=== PATIENT | male | born 1930 | race Caucasian/White ===

== ENCOUNTER 2016-12-19 16:47 | Inpatient (IN) ==
[2016-12-19] MEDS ORDERED: ONDANSETRON 4 MG/2 ML VIAL IV PRN (17:01)
[2016-12-19] MEDS ORDERED: DEXTROSE 50% 25 GM/50 ML SYRINGE IV PRN (17:01)
[2016-12-19] MEDS ORDERED: GLUCAGON 1 MG VIAL IM PRN (17:01)
[2016-12-19] MEDS ORDERED: ACETAMINOPHEN 325 MG TABLET PO PRN ×2 (17:01→18:31)
[2016-12-19] MEDS ORDERED: ENOXAPARIN 30 MG/0.3 ML SYRINGE SUBCUT SCH (17:30)
[2016-12-19] MEDS ORDERED: MAGNESIUM HYDROXIDE SUSP 30 ML UDCUP PO PRN (18:31)
[2016-12-19 18:56] LABS: Basophils # 0.1 10*3/uL (0.0-0.2); Basophils % 0.5 % (0.0-0.8); Eosinophils # 0.1 10*3/uL (0.0-0.87); Eosinophils % 1.4 % (0.00-10.9); Hematocrit 44.5 VOL% (42.0-52.0); Hemoglobin 14.9 GM/DL (14.0-18.0); Immature Granulocytes % 0.5 %; Immature Granulocytes Absolute 0.05 #; Lymphocytes # 1.2 10*3/uL (1.4-4.0); Lymphocytes % 11.9 % (21.2-54.2); Mean Corpuscular HGB Conc 33.5 GM/DL (32-36); Mean Corpuscular Hemoglobin 31 PG (27-34); Mean Corpuscular Volume 93.5 FL (87-102); Mean Platelet Volume 11.4 FL (9.6-12.0); Monocytes # 0.9 10*3/uL (0.11-0.8); Monocytes % 8.8 % (1.7-12.7); Neutrophils # 7.8 10*3/uL (1.4-7.4); Neutrophils % 76.9 % (38.7-73.9); Platelet Count 106 T/CUMM (130-400); Red Blood Count 4.76 MC/CUMM (3.8-5.5); Red Cell Distribution Width 14.8 % (9.3-17.3); White Blood Count 10.1 T/CUMM (4-12)
[2016-12-19 19:27] LABS: Albumin 2.9 G/DL (3.4-5.0); Bilirubin,Total 1.3 MG/DL (0.2-1.0); Calcium 8.8 MG/DL (8.5-10.1); Magnesium 2.2 MG/DL (1.8-2.4); Osmolality,Calculated 280.8 MOS/KG (273-304); Potassium 3.9 MMOL/L (3.5-5.1)
[2016-12-19] MEDS: ALBUTEROL/IPRATROPIUM 3 ML NEB RESP TX SCH (19:48)
[2016-12-19] MEDS ORDERED: VANCOMYCIN INJ 1,000 MG in SODIUM CHLORIDE 0.9% 250 ML IV ONE (21:00)
[2016-12-19] MEDS ORDERED: APIXABAN 2.5 MG TABLET PO SCH (21:00)
[2016-12-19] MEDS: FLECAINIDE 100 MG TABLET PO SCH (22:05)
[2016-12-19] MEDS: DOCUSATE SODIUM 100 MG CAPSULE PO SCH (22:05)
[2016-12-19] MEDS: MIDODRINE 5 MG TABLET PO SCH (22:06)
[2016-12-19] MEDS: APIXABAN 2.5 MG TABLET PO SCH (22:07)
[2016-12-19] MEDS: TAMSULOSIN 0.4 MG CAPSULE PO SCH (22:07)
[2016-12-19] MEDS: GABAPENTIN 100 MG CAPSULE PO SCH (22:08)
[2016-12-19] MEDS: INSULIN LISPRO 100 UNIT/ML SUBCUT SCH (23:29)
[2016-12-20] MEDS: SODIUM CHLORIDE 0.45% 1,000 ML IV SCH ×3 (00:20→22:24)
[2016-12-20] MEDS: cefTRIAXone 1,000 MG in SODIUM CHLORIDE 0.9% 100 ML IV SCH ×2 (00:20→21:00)
[2016-12-20] MEDS: ALBUTEROL/IPRATROPIUM 3 ML NEB RESP TX SCH ×5 (00:54→20:06)
[2016-12-20 02:17] LABS: Apearance,Urine CLEAR (Clear); Bacteria,Urine Few /HPF (Few); Bilirubin,Urine Negative (Negative); Blood, Urine Negative (Negative); Glucose,Urine (UA) Negative (Negative); Ketones,Urine Negative (Negative); Mucus,Urine Occasional /LPF (Occasional); Nitrite,Urine Negative (Negative); Protein,Urine 30 MG/DL; RBC,Urine <1 /HPF (0-4); Squamous Epithelial Cell,Urine Occasional /HPF (0-10); Urine Color Amber (Yellow); Urine Specific Gravity 1.017 (1.001-1.035); WBC,Urine 22 /HPF (0-6)
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
--- NOTE | 2016-12-20 07:42 | EKG Report ---
Stationary ECG Study [facility] Test Date: 12/20/2016 7:24:13 AM Pat Name: JOSE PLUMMER Department: Room: 270 Gender: M Block Tester: MEDINA : 1930 Requested by: Ministerio Thompson Order Number: [id number] Reading MD: JUDIT GOODEN Intervals [place] Rate: 93 P: 999 CO: 0 QRS: 269 QRSD: 213 T: 33 QT: 473 QTc: 523 Interpretive Statements ATRIAL FIBRILLATION at 93 bpm, with OCCASIONAL DEMAND ATRIAL PACING AT 93 BPM RIGHT BUNDLE BRANCH BLOCK Prolonged QTC Electronically Signed On 12-20-16 08:03:36 CDT by JUDIT GOODEN [email or web address]
[2016-12-20] MEDS: INSULIN LISPRO 100 UNIT/ML SUBCUT SCH ×4 (08:39→22:24)
[2016-12-20] MEDS ORDERED: PANTOPRAZOLE 40 MG TABLET PO SCH (09:00)
[2016-12-20] MEDS: ATORVASTATIN 40 MG TABLET PO SCH (09:17)
[2016-12-20] MEDS: ASPIRIN EC 81 MG TABLET PO SCH (09:18)
[2016-12-20] MEDS: DOCUSATE SODIUM 100 MG CAPSULE PO SCH ×2 (09:18→21:00)
[2016-12-20] MEDS: TAMSULOSIN 0.4 MG CAPSULE PO SCH (09:18)
[2016-12-20] MEDS: FLECAINIDE 100 MG TABLET PO SCH ×2 (09:18→20:59)
[2016-12-20] MEDS: MULTIVITAMIN (CENTRUM) TABLET PO SCH (09:18)
[2016-12-20] MEDS: SULFAMETHOX/TRIMETHOPRIM 800-160 MG TABLET PO SCH ×2 (09:18→21:00)
[2016-12-20] MEDS: PANTOPRAZOLE 40 MG TABLET PO SCH (09:19)
[2016-12-20] MEDS: MIDODRINE 5 MG TABLET PO SCH ×3 (09:19→21:00)
[2016-12-20] MEDS: APIXABAN 2.5 MG TABLET PO SCH ×2 (09:19→20:59)
[2016-12-20] MEDS: GABAPENTIN 100 MG CAPSULE PO SCH ×3 (09:19→21:00)
[2016-12-20] MEDS: glipiZIDE 5 MG TABLET PO SCH (09:48)
--- NOTE | 2016-12-20 12:46 | Urology Consultation ---
Assessment and Plan - Time spent with patient Time spent with patient: Greater than 30 minutes (1) UTI (urinary tract infection) Status: Acute Assessment and plan: We will begin intermittent catheterization. The patient and his have done this previously. I think this is probably going be lifelong for him. The nurses will go over with the with training again. Current Visit: No History of Present Illness - Data of Consult Patient: known to practice within the last 3 years Consult date: 12/20/16 Requesting Physician: Jaxon Marie - Consult Narrative Reason for consult: Urinary infection History of present illness: Mr. Rose is a 86 year old male who is well known to me. He has had previous TUR. After the TUR he had difficulty with voiding. He was on intermittent cath for a while but this improved. He is on multiple medicines and does not ambulate which all contribute to urinary retention. Which I think is his problem. He gets up every hour at night. He also has chronic constipation which has a part and is also. I recommend we stop the Flomax. We will begin him on intermittent cath 3 times daily and I think this will probably be lifelong. In the long run he will feel better. He will be getting up at night and he will have these urgent incontinent episodes that he does. I will have the nursing service begin the cathing. They will have a "refresher course" with Mrs. Rose. She has done it in the past. CC: Jaxon Marie MD - Home Medications and Allergies Home Medications: Home Medications Medication Instructions Recorded Confirmed Type Aspirin EC Tab 1 tablet PO DAILY 02/10/15 08/27/16 History Flecainide [Tambocor] 1 tablet PO BID 02/10/15 08/27/16 History glipiZIDE [Glipizide] 1 tablet PO DAILY 02/10/15 08/27/16 History Apixaban [Eliquis] 2.5 mg PO BID 07/06/15 08/27/16 History Atorvastatin Calcium 20 mg PO DAILY 05/06/16 08/27/16 History Gabapentin 100 mg PO TID 05/06/16 08/27/16 History Multivit-Min/FA/Lycopen/Lutein 1 each PO DAILY 05/06/16 08/27/16 History [Centrum Silver Tablet] Midodrine [Proamatine] 2.5 mg PO TID 08/27/16 08/27/16 History Acetaminophen Tab [Tylenol Tab] 650 mg PO Q6H PRN #0 tablet 08/30/16 Rx Albuterol/Ipratropium Neb [Duoneb] 3 ml RESP TX RT Q6H 08/30/16 Rx Docusate Sodium Cap [Colace Cap] 100 mg PO BID capsule 08/30/16 Rx HYDROcodone/ACETAMIN 7.5-325 1 tablet PO Q4H PRN #60 tablet 08/30/16 Rx [[place] 7.5-325] Magnesium Hydroxide Susp [Milk of 30 ml PO Q6H PRN #0 08/30/16 Rx Magnesia] Pantoprazole Tab [Protonix Tab] 40 mg PO DAILY tablet 08/30/16 Rx Levofloxacin Tab [Levaquin Tab] 500 mg PO DAILY #7 tablet 12/18/16 Rx Furosemide 20 mg PO DAILY 12/19/16 12/19/16 History Oxybutynin [Ditropan] 5 mg PO BID 12/19/16 12/19/16 History Tamsulosin [Flomax] 0.4 mg PO BID 12/19/16 12/19/16 History Allergies/Adverse Reactions: Allergies Allergy/AdvReac Type Severity Reaction Status Date / Time No Known Allergies Allergy Verified 12/18/16 15:22 Exam - Constitutional Vitals: Period Temp Pulse Resp BP Sys/Perry Pulse Ox Last 24 Hr 98.3 F-100.3 F 65-103 16-20 90-130/51-76 93-100 Results - Labs CBC & BMP: 12/19/16 18:41 12/19/16 18:41
[2016-12-21] MEDS: ALBUTEROL/IPRATROPIUM 3 ML NEB RESP TX SCH ×4 (00:44→21:04)
[2016-12-21] MEDS: SODIUM CHLORIDE 0.45% 1,000 ML IV SCH ×2 (03:45→12:21)
--- NOTE | 2016-12-21 07:17 | Family Practice Progress Note ---
Family Practice - PN: Subj Interval history: Patient states he had a good night and was seen by Dr. Panchito Marie who recommended intermittent in and out caths for chronic urinary retention. Patient states his appetite has been poor and he relates this to difficulty swallowing. He is not having any strangling episodes and denies any change in phonation. We needed to have a swallowing assessment. I also asked him to get up out of bed and in the chair and I will asked the nurses to assist him in this. Regretfully his ability to ambulate has deteriorated dramatically. Physical therapy will be consulted. His blood cultures were positive for E. coli sensitive to Rocephin. Sensitivities of his MSSA are pending. I do have him on Bactrim DS. Exam (Progress Note) - Constitutional Vitals: Period Temp Pulse Resp BP Sys/Perry Pulse Ox Last 24 Hr 98.3 F-99.2 F 62-98 15-20 96-135/55-72 94-99 Exam: Objectively well-developed gentleman in no acute distress. He is his usual pleasant self and tells me he is not having any trouble breathing. He states he is not having any abdominal pain or discomfort and appears comfortable. Cardiovascular: Heart rates are regular but there is no murmurs or gallops. Respiratory: Lungs are clear to auscultation bilaterally. Abdomen: Abdomen soft and nontender to palpation. Neurologic: He has no abnormality on cranial nerve exam and is noted to have symmetrical strength in upper extremities. He has diffuse weakness in his lower extremities and is developing flexion contractures of both lower extremities. Results - Labs CBC & BMP: 12/19/16 18:41 12/19/16 18:41 Lab Results: I have reviewed the past 24 hour labs Assessment and Plan (1) Altered mental status Status: Acute Assessment and plan: 12/20/2016: Patient appears to have metabolic encephalopathy secondary to his bacteremia. 12/21/2016: Patient's sensorium certainly appears to be clearing. I am going to repeat his liver functions today. Current Visit: Yes (2) Gram-negative bacteremia Status: Acute Assessment and plan: 12/20/2016: ID and sensitivities are pending. We will continue present antibiotics. 12/21/2016: Blood cultures positive for E. coli. I suspect source of this is his urinary tract infection even though he has MSSA on urine culture. He is to begin intermittent in and out catheterizations. Current Visit: Yes (3) UTI (urinary tract infection) Status: Acute Assessment and plan: 12/20/2016: Patient appears to have a coag negative staph. I will add Bactrim DS. Current Visit: Yes
[2016-12-21 08:13] LABS: Basophils % 0.8 % (0.0-0.8); Eosinophils # 0.2 10*3/uL (0.0-0.87); Eosinophils % 3.1 % (0.00-10.9); Hematocrit 38.6 VOL% (42.0-52.0); Immature Granulocytes % 0.8 %; Immature Granulocytes Absolute 0.04 #; Lymphocytes # 1.2 10*3/uL (1.4-4.0); Lymphocytes % 22.5 % (21.2-54.2); Mean Corpuscular HGB Conc 33.4 GM/DL (32-36); Mean Corpuscular Hemoglobin 31 PG (27-34); Mean Platelet Volume 11.8 FL (9.6-12.0); Monocytes # 0.8 10*3/uL (0.11-0.8); Neutrophils # 2.9 10*3/uL (1.4-7.4); Neutrophils % 56.8 % (38.7-73.9); Red Blood Count 4.15 MC/CUMM (3.8-5.5); Red Cell Distribution Width 15.1 % (9.3-17.3)
[2016-12-21 08:27] LABS: Hemoglobin 12.9 GM/DL (14.0-18.0); White Blood Count 5.1 T/CUMM (4-12)
[2016-12-21 08:28] LABS: Platelet Count 99 T/CUMM (130-400)
[2016-12-21 08:40] LABS: Albumin 2.5 G/DL (3.4-5.0); Bilirubin,Direct 0.4 MG/DL (0.0-0.20); Bilirubin,Indirect 0.3 MG/DL (0.0-1.0); Bilirubin,Total 0.7 MG/DL (0.2-1.0); Total Protein 5.2 G/DL (6.4-8.3)
[2016-12-21 08:47] LABS: Eosinophils 1 % (0-10); Hypochromasia Slight; Lymphocytes 21 % (20-55); Segmented Neutrophils 61 % (50-85); Total Cells Counted 100
[2016-12-21 08:48] LABS: Platelet Estimate Decreased
[2016-12-21] MEDS: ATORVASTATIN 40 MG TABLET PO SCH (08:48)
[2016-12-21] MEDS: MIDODRINE 5 MG TABLET PO SCH ×3 (08:51→20:39)
[2016-12-21] MEDS: PANTOPRAZOLE 40 MG TABLET PO SCH (08:51)
[2016-12-21] MEDS: SULFAMETHOX/TRIMETHOPRIM 800-160 MG TABLET PO SCH ×2 (08:51→20:39)
[2016-12-21] MEDS: DOCUSATE SODIUM 100 MG CAPSULE PO SCH ×2 (08:51→20:39)
[2016-12-21] MEDS: FLECAINIDE 100 MG TABLET PO SCH ×2 (08:52→20:39)
[2016-12-21] MEDS: MULTIVITAMIN (CENTRUM) TABLET PO SCH (08:52)
[2016-12-21] MEDS: GABAPENTIN 100 MG CAPSULE PO SCH ×3 (08:52→20:39)
[2016-12-21] MEDS: ASPIRIN EC 81 MG TABLET PO SCH (08:52)
[2016-12-21] MEDS: glipiZIDE 5 MG TABLET PO SCH (08:52)
[2016-12-21] MEDS: APIXABAN 2.5 MG TABLET PO SCH ×2 (08:52→20:39)
[2016-12-21] MEDS: INSULIN LISPRO 100 UNIT/ML SUBCUT SCH ×4 (10:18→21:35)
--- NOTE | 2016-12-21 11:30 | Urology Progress Note ---
Assessment and Plan (1) UTI (urinary tract infection) Status: Acute Assessment and plan: We will begin intermittent catheterization. The patient and his have done this previously. I think this is probably going be lifelong for him. The nurses will go over with the with training again. Current Visit: No Urology - PN: Subj Interval history: We stopped his Flomax and begin intermittent catheterization. His residuals have been low. He does have precipitous incontinence and that is his first sensation. He has become basically wheelchair-bound since he fractured his hip earlier in the spring. Some of this is functional which I cannot change. I do recommend that we cathing as needed. We will offer him Ditropan to see if this will help with his incontinence. And we will continue to not give him the Flomax. Exam - Constitutional Vitals: Period Temp Pulse Resp BP Sys/Perry Pulse Ox Last 24 Hr 98.3 F-99.2 F 62-98 15-20 96-135/55-72 94-99 Results - Labs CBC & BMP: 12/21/16 07:49 12/19/16 18:41
[2016-12-21] MEDS: OXYBUTYNIN XL 10 MG TABLET PO SCH (12:18)
[2016-12-21] MEDS: cefTRIAXone 1,000 MG in SODIUM CHLORIDE 0.9% 100 ML IV SCH (20:40)
[2016-12-22] MEDS: ALBUTEROL/IPRATROPIUM 3 ML NEB RESP TX SCH ×4 (01:16→19:23)
[2016-12-22] MEDS: SODIUM CHLORIDE 0.45% 1,000 ML IV SCH ×2 (01:22→14:25)
--- NOTE | 2016-12-22 05:46 | Family Practice Progress Note ---
Family Practice - PN: Subj Interval history: Patient apparently slept very poorly last night according to his . Patient states she is feeling good this morning is ready for his breakfast. Is noted to have low volume residuals on intermittent in and out caths. Dr. Panchito Marie is add some Ditropan. Is also noted to have MSSA on his urine culture and it is resistant to multiple drugs. It is sensitive to Macrobid I will start him on that today. His E. coli in his bloodstream is sensitive to Rocephin and this will be continued. He will be in the hospital through the weekend with his gram-negative bacteremia. Exam (Progress Note) - Constitutional Vitals: Period Temp Pulse Resp BP Sys/Perry Pulse Ox Last 24 Hr 98.6 F-99.4 F 66-104 18-20 103-125/53-71 95-99 Exam: Objectively well-developed gentleman in no acute distress. He states he is feeling much better Cardiovascular: Heart rates are regular but there is no murmurs or gallops. Respiratory: Lungs are clear to auscultation bilaterally. Abdomen: Abdomen soft and nontender to palpation. Results - Labs CBC & BMP: 12/21/16 07:49 12/19/16 18:41 Lab Results: I have reviewed the past 24 hour labs Assessment and Plan (1) Altered mental status Status: Resolved Assessment and plan: 12/20/2016: Patient appears to have metabolic encephalopathy secondary to his bacteremia. 12/21/2016: Patient's sensorium certainly appears to be clearing. I am going to repeat his liver functions today. 12/22/2016: Patient has returned to his baseline. Current Visit: Yes (2) Gram-negative bacteremia Status: Acute Assessment and plan: 12/20/2016: ID and sensitivities are pending. We will continue present antibiotics. 12/21/2016: Blood cultures positive for E. coli. I suspect source of this is his urinary tract infection even though he has MSSA on urine culture. He is to begin intermittent in and out catheterizations. 12/22/2016: E. coli is sensitive to Rocephin Current Visit: Yes (3) UTI (urinary tract infection) Status: Acute Assessment and plan: 12/20/2016: Patient appears to have a coag negative staph. I will add Bactrim DS. 12/22/2016: Patient's MSSA is resistant to all oral antibiotics except Zyvox and Macrodantin. I am going to switch him to Macrodantin. Current Visit: Yes
[2016-12-22] MEDS: INSULIN LISPRO 100 UNIT/ML SUBCUT SCH ×4 (08:26→21:29)
[2016-12-22] MEDS: MIDODRINE 5 MG TABLET PO SCH ×3 (09:08→21:24)
[2016-12-22] MEDS: MULTIVITAMIN (CENTRUM) TABLET PO SCH (09:09)
[2016-12-22] MEDS: DOCUSATE SODIUM 100 MG CAPSULE PO SCH ×2 (09:09→21:24)
[2016-12-22] MEDS: OXYBUTYNIN XL 10 MG TABLET PO SCH (09:09)
[2016-12-22] MEDS: FLECAINIDE 100 MG TABLET PO SCH ×2 (09:09→21:24)
[2016-12-22] MEDS: NITROFURANTOIN MACRO/MONO 100 MG CAPSULE PO SCH ×2 (09:09→21:24)
[2016-12-22] MEDS: APIXABAN 2.5 MG TABLET PO SCH ×2 (09:10→21:24)
[2016-12-22] MEDS: ATORVASTATIN 40 MG TABLET PO SCH (09:10)
[2016-12-22] MEDS: PANTOPRAZOLE 40 MG TABLET PO SCH (09:10)
[2016-12-22] MEDS: GABAPENTIN 100 MG CAPSULE PO SCH ×3 (09:10→21:24)
[2016-12-22] MEDS: glipiZIDE 5 MG TABLET PO SCH (09:10)
[2016-12-22] MEDS: ASPIRIN EC 81 MG TABLET PO SCH (09:10)
--- NOTE | 2016-12-22 09:18 | Urology Progress Note ---
Assessment and Plan (1) UTI (urinary tract infection) Status: Acute Assessment and plan: We will begin intermittent catheterization. The patient and his have done this previously. I think this is probably going be lifelong for him. The nurses will go over with the with training again. Current Visit: No Urology - PN: Subj Interval history: We started some Ditropan yesterday and were cathing him as needed. He does not see much of a change at this will take some time. Exam - Constitutional Vitals: Period Temp Pulse Resp BP Sys/Perry Pulse Ox Last 24 Hr 98.6 F-99.4 F 66-104 18-20 103-131/53-73 95-99 Results - Labs CBC & BMP: 12/21/16 07:49 12/19/16 18:41
[2016-12-22] MEDS: cefTRIAXone 1,000 MG in SODIUM CHLORIDE 0.9% 100 ML IV SCH (21:24)
[2016-12-23] MEDS: ALBUTEROL/IPRATROPIUM 3 ML NEB RESP TX SCH ×4 (00:07→19:18)
[2016-12-23] MEDS: SODIUM CHLORIDE 0.45% 1,000 ML IV SCH ×2 (04:11→13:07)
--- NOTE | 2016-12-23 08:09 | Family Practice Progress Note ---
Family Practice - PN: Subj Interval history: PCP: Dr. Marie. Patient admitted for UTI, gram-negative bacteremia altered mental status, history of diabetes type 2, hypertension, A. fib status post cardioversion, DVT Patient seen and examined on the telemetry bed, accompanied by his at the bedside. Patient mentions he is overall feeling better than previous days, Had excess urine yesterday as per patient. No fever, nausea, vomiting, chest pain, headaches or dizziness. No overnight events reported by the nurse. Exam (Progress Note) - Constitutional Vitals: Period Temp Pulse Resp BP Sys/Perry Pulse Ox Last 24 Hr 98.7 F-99.6 F 64-88 18-20 101-129/58-73 94-99 Exam: GENERAL APPEARANCE: alert and oriented, elderly male patient, lying in the bed, having a DuoNeb treatment presently. HEENT: Decreased hearing. EYES: extraocular movement intact (EOMI), conjunctiva clear, normal. NECK/THYROID: neck supple, full range of motion, no cervical lymphadenopathy, no thyromegaly. HEART: regular rate and rhythm, no murmurs, rubs, gallops. LUNGS: clear to auscultation bilaterally, no wheezes, rales, rhonchi. ABDOMEN: soft, nontender, nondistended, no organomegaly , bowel sounds present. EXTREMITIES: no edema. NEUROLOGIC: alert and oriented, cranial nerves 2-12 grossly intact, Results - Labs CBC & BMP: 12/21/16 07:49 12/19/16 18:41 Lab Results: I have reviewed the past 24 hour labs - Impressions Blood culture, from 12/19/2016 no growth for 3 days, urine culture from 12/20/2016 no growth for 2 days Assessment and Plan (1) UTI (urinary tract infection) Status: Acute Assessment and plan: , on antibiotics Rocephin, Macrobid. Continue urologist recommendations 2. Altered mental status, resolved. 3. Diabetes mellitus type 2, stable continue sliding scale and oral meds, Neurontin. 4. Hypertension stable, continue antihypertensives. 5. History of A. fib status post cardioversion, history of DVT on Eliquis. Current Visit: Yes (2) Gram-negative bacteremia Status: Acute Current Visit: Yes (3) Altered mental status Status: Resolved Current Visit: Yes (4) Diabetes type 2, controlled Status: Chronic Current Visit: Yes Qualifiers: Diabetes mellitus complication detail: with polyneuropathy (5) Hypertension Status: Chronic Current Visit: Yes Qualifiers: Hypertension type: essential hypertension Qualified Code(s): I10 - Essential (primary) hypertension (6) Atrial fibrillation Status: Chronic Current Visit: No (7) Hx of deep venous thrombosis Problem details: on Eliquis Status: Chronic Current Visit: No
[2016-12-23] MEDS: INSULIN LISPRO 100 UNIT/ML SUBCUT SCH ×3 (09:17→17:01)
[2016-12-23] MEDS: FLECAINIDE 100 MG TABLET PO SCH ×2 (09:18→21:29)
[2016-12-23] MEDS: MIDODRINE 5 MG TABLET PO SCH ×3 (09:19→21:28)
[2016-12-23] MEDS: OXYBUTYNIN XL 10 MG TABLET PO SCH (09:19)
[2016-12-23] MEDS: DOCUSATE SODIUM 100 MG CAPSULE PO SCH ×2 (09:19→21:27)
[2016-12-23] MEDS: APIXABAN 2.5 MG TABLET PO SCH ×2 (09:19→21:28)
[2016-12-23] MEDS: MULTIVITAMIN (CENTRUM) TABLET PO SCH (09:19)
[2016-12-23] MEDS: GABAPENTIN 100 MG CAPSULE PO SCH ×3 (09:20→21:27)
[2016-12-23] MEDS: NITROFURANTOIN MACRO/MONO 100 MG CAPSULE PO SCH ×2 (09:21→21:28)
[2016-12-23] MEDS: ASPIRIN EC 81 MG TABLET PO SCH (09:21)
[2016-12-23] MEDS: PANTOPRAZOLE 40 MG TABLET PO SCH (09:21)
[2016-12-23] MEDS: ATORVASTATIN 40 MG TABLET PO SCH (09:22)
[2016-12-23] MEDS: glipiZIDE 5 MG TABLET PO SCH (09:22)
--- NOTE | 2016-12-23 12:10 | Urology Progress Note ---
Assessment and Plan (1) UTI (urinary tract infection) Status: Acute Assessment and plan: We will begin intermittent catheterization. The patient and his have done this previously. I think this is probably going be lifelong for him. The nurses will go over with the with training again. Current Visit: No Urology - PN: Subj Interval history: Mr. Rose is some better. A big part of his problem is he is laying in his bed and is not mobile. Has not had a bowel movement for 5 days and they need to work on that. I will order PT to improve that. We will give the Ditropan more time. Exam - Constitutional Vitals: Period Temp Pulse Resp BP Sys/Perry Pulse Ox Last 24 Hr 97.9 F-99.6 F 64-91 18-20 101-129/58-73 94-99 Results - Labs CBC & BMP: 12/21/16 07:49 12/19/16 18:41
[2016-12-23] MEDS: cefTRIAXone 1,000 MG in SODIUM CHLORIDE 0.9% 100 ML IV SCH (21:32)
[2016-12-24] MEDS: ALBUTEROL/IPRATROPIUM 3 ML NEB RESP TX SCH ×4 (00:34→19:12)
[2016-12-24] MEDS: SODIUM CHLORIDE 0.45% 1,000 ML IV SCH ×2 (00:56→16:51)
[2016-12-24] MEDS: INSULIN LISPRO 100 UNIT/ML SUBCUT SCH ×4 (01:03→16:16)
[2016-12-24] MEDS: DOCUSATE SODIUM 100 MG CAPSULE PO SCH ×2 (08:58→20:25)
[2016-12-24] MEDS: FLECAINIDE 100 MG TABLET PO SCH ×2 (08:59→20:25)
[2016-12-24] MEDS: ATORVASTATIN 40 MG TABLET PO SCH (08:59)
[2016-12-24] MEDS: GABAPENTIN 100 MG CAPSULE PO SCH ×3 (08:59→20:26)
[2016-12-24] MEDS: NITROFURANTOIN MACRO/MONO 100 MG CAPSULE PO SCH ×2 (08:59→20:25)
[2016-12-24] MEDS: OXYBUTYNIN XL 10 MG TABLET PO SCH (08:59)
[2016-12-24] MEDS: MULTIVITAMIN (CENTRUM) TABLET PO SCH (08:59)
[2016-12-24] MEDS: ASPIRIN EC 81 MG TABLET PO SCH (09:00)
[2016-12-24] MEDS: glipiZIDE 5 MG TABLET PO SCH (09:00)
[2016-12-24] MEDS: MIDODRINE 5 MG TABLET PO SCH ×3 (09:00→20:26)
[2016-12-24] MEDS: APIXABAN 2.5 MG TABLET PO SCH ×2 (09:00→20:26)
[2016-12-24] MEDS: PANTOPRAZOLE 40 MG TABLET PO SCH (09:00)
--- NOTE | 2016-12-24 09:04 | Family Practice Progress Note ---
Family Practice - PN: Subj Interval history: PCP: Dr. Marie. Patient admitted for UTI, gram-negative bacteremia altered mental status, history of diabetes type 2, hypertension, A. fib status post cardioversion, DVT Patient seen and examined on the telemetry bed, accompanied by his at the bedside. Nurse present in the room, giving him a.m. meds Patient mentions feels better, is getting up and sitting in the chair Urine symptoms improving, No fever, nausea, vomiting, chest pain, headaches or dizziness. No overnight events reported by the nurse. Exam (Progress Note) - Constitutional Vitals: Period Temp Pulse Resp BP Sys/Perry Pulse Ox Last 24 Hr 96.1 F-98.2 F 52-98 16-20 101-128/58-75 92-100 Exam: GENERAL APPEARANCE: alert and oriented, elderly male patient, lying in the bed,. HEENT: Decreased hearing. EYES: extraocular movement intact (EOMI), conjunctiva clear, normal. NECK/THYROID: neck supple, full range of motion, no cervical lymphadenopathy, no thyromegaly. HEART: regular rate and rhythm, no murmurs, rubs, gallops. LUNGS: clear to auscultation bilaterally, no wheezes, rales, rhonchi. ABDOMEN: soft, nontender, nondistended, no organomegaly , bowel sounds present. EXTREMITIES: no edema. NEUROLOGIC: alert and oriented, cranial nerves 2-12 grossly intact, Results - Labs CBC & BMP: 12/21/16 07:49 12/19/16 18:41 Lab Results: I have reviewed the past 24 hour labs - Impressions Urine culture from 12/20/2016 no growth for 2 days, blood culture from 12/19/2016 no growth for 3 days Assessment and Plan (1) UTI (urinary tract infection) Status: Acute Assessment and plan: , on antibiotics Rocephin, Macrobid. Continue urologist recommendations. Will get CBC, BMP, in a.m. 1 2. Altered mental status, resolved. 3. Diabetes mellitus type 2, stable continue sliding scale and oral meds, Neurontin. 4. Hypertension stable, continue antihypertensives. 5. History of A. fib status post cardioversion, history of DVT on Eliquis. Current Visit: Yes (2) Gram-negative bacteremia Status: Acute Current Visit: Yes (3) Altered mental status Status: Resolved Current Visit: Yes (4) Diabetes type 2, controlled Status: Chronic Current Visit: Yes Qualifiers: Diabetes mellitus complication detail: with polyneuropathy (5) Hypertension Status: Chronic Current Visit: Yes Qualifiers: Hypertension type: essential hypertension Qualified Code(s): I10 - Essential (primary) hypertension (6) Atrial fibrillation Status: Chronic Current Visit: No (7) Hx of deep venous thrombosis Problem details: on Eliquis Status: Chronic Current Visit: No
--- NOTE | 2016-12-24 14:45 | Urology Progress Note ---
Assessment and Plan (1) UTI (urinary tract infection) Status: Acute Assessment and plan: We will begin intermittent catheterization. The patient and his have done this previously. I think this is probably going be lifelong for him. The nurses will go over with the with training again. Current Visit: No Urology - PN: Subj Interval history: Patient require catheterization. This was done for urinary retention. With this in mind I am going to stop the Ditropan. The patient's problem is a functional issue. He has been bedridden for the last 4 months and very inactive in the last month. From his voiding standpoint, he should improve greatly if his mobility increases. I told the patient I do not have a magic pill for that. We will continue use the condom catheters and cath as necessary. But this is a functional voiding dysfunction related immobility. Exam - Constitutional Vitals: Period Temp Pulse Resp BP Sys/Perry Pulse Ox Last 24 Hr 96.1 F-98.6 F 54-98 16-20 101-133/58-74 92-100 Results - Labs CBC & BMP: 12/21/16 07:49 12/19/16 18:41
[2016-12-24] MEDS: cefTRIAXone 1,000 MG in SODIUM CHLORIDE 0.9% 100 ML IV SCH (20:26)
[2016-12-25] MEDS: ALBUTEROL/IPRATROPIUM 3 ML NEB RESP TX SCH ×2 (00:10→07:08)
[2016-12-25] MEDS: INSULIN LISPRO 100 UNIT/ML SUBCUT SCH ×3 (01:40→12:31)
[2016-12-25 05:14] LABS: Basophils # 0.1 10*3/uL (0.0-0.2); Basophils % 1.4 % (0.0-0.8); Eosinophils # 0.8 10*3/uL (0.0-0.87); Hematocrit 43.1 VOL% (42.0-52.0); Hemoglobin 14.5 GM/DL (14.0-18.0); Immature Granulocytes % 0.6 %; Immature Granulocytes Absolute 0.05 #; Lymphocytes # 1.8 10*3/uL (1.4-4.0); Lymphocytes % 23.9 % (21.2-54.2); Mean Corpuscular HGB Conc 33.6 GM/DL (32-36); Mean Corpuscular Hemoglobin 31 PG (27-34); Mean Corpuscular Volume 92.1 FL (87-102); Mean Platelet Volume 10.8 FL (9.6-12.0); Monocytes # 0.6 10*3/uL (0.11-0.8); Monocytes % 8.1 % (1.7-12.7); Neutrophils # 4.3 10*3/uL (1.4-7.4); Platelet Count 170 T/CUMM (130-400); Red Blood Count 4.68 MC/CUMM (3.8-5.5); Red Cell Distribution Width 14.7 % (9.3-17.3); White Blood Count 7.7 T/CUMM (4-12)
[2016-12-25 05:44] LABS: Calcium 8.5 MG/DL (8.5-10.1); Magnesium 2.2 MG/DL (1.8-2.4); Phosphorous 3.2 MG/DL (2.5-4.9)
[2016-12-25 05:45] LABS: Osmolality,Calculated 278.3 MOS/KG (273-304); Potassium 4.3 MMOL/L (3.5-5.1)
--- NOTE | 2016-12-25 07:14 | Discharge Summary ---
Hospital Course - Hospital Course Hospital Course: Patient's 86-year-old white male presents emergency room with altered level of consciousness the day before admission. Patient was started on antibiotics and cultures were obtained. He was found to have staph epidermidis UTI and also was noted to have E. coli bacteremia. Patient was notified and returned to the hospital was admitted for IV antibiotic therapy. Patient does have a history of incontinence was seen in consultation with Dr. Panchito Marie. He is recommending intermittent catheterizations and condom catheter. Patient was treated with appropriate antibiotic therapy and his sensorium cleared rapidly. Patient requests discharge to home. This is day 7 of his IV antibiotic therapy for his E. coli bacteremia. Repeat blood cultures on the eighth were negative. The staph epidermidis is sensitive to Macrodantin and the E. coli is sensitive to all antibiotics. He will be discharged home today and I will see him back in the office in 2 weeks. Diagnosis - Discharge Diagnosis (1) Altered mental status Status: Resolved (2) Gram-negative bacteremia Status: Acute (3) UTI (urinary tract infection) Status: Acute Discharge Plan - Discharge Data Disposition: Disch To Home/Self Care Condition at Discharge: Stable Discharge Diet: advance to your usual diet, diabetic diet Activity: ambulate only with your walker, as per physical therapy Hygiene: no restrictions Weight Bearing at Discharge: full weight bearing Contact your physician if you experience:: fever over 101 - Discharge Medications New Amoxicillin Cap/Tab 875 mg PO BID #14 tablet Apixaban [Eliquis] 2.5 mg PO BID #0 tablet Nitrofurantoin Macro/King [Macrobid] 100 mg PO BID #14 capsule Continue Flecainide [Tambocor] 1 tablet PO BID glipiZIDE [Glipizide] 1 tablet PO DAILY Aspirin EC Tab 1 tablet PO DAILY Apixaban [Eliquis] 2.5 mg PO BID Gabapentin 100 mg PO TID Midodrine [Proamatine] 2.5 mg PO TID Albuterol/Ipratropium Neb [Duoneb] 3 ml RESP TX RT Q6H Docusate Sodium Cap [Colace Cap] 100 mg PO BID capsule Magnesium Hydroxide Susp [Milk of Magnesia] 30 ml PO Q6H PRN #0 PRN Reason: Constipation Pantoprazole Tab [Protonix Tab] 40 mg PO DAILY tablet Multivit-Min/FA/Lycopen/Lutein [Centrum Silver Tablet] 1 each PO DAILY Atorvastatin Calcium 20 mg PO DAILY Acetaminophen Tab [Tylenol Tab] 650 mg PO Q6H PRN #0 tablet PRN Reason: Fever > 100.4 Or Headache HYDROcodone/ACETAMIN 7.5-325 [[place]by 7.5-325] 1 tablet PO Q4H PRN #60 tablet PRN Reason: Pain Moderate (4-7) Levofloxacin Tab [Levaquin Tab] 500 mg PO DAILY #7 tablet Furosemide 20 mg PO DAILY Discontinued Tamsulosin [Flomax] 0.4 mg PO BID Oxybutynin [Ditropan] 5 mg PO BID - Follow Up or Referral - Forms/Instructions Exam - Constitutional Vitals: Period Temp Pulse Resp BP Sys/Perry Pulse Ox Last 24 Hr 97.5 F-98.6 F 63-97 16-20 126-143/69-86 96-100 Exam: Objectively well-developed gentleman in no acute distress. He has returned to his normal sensorium. Cardiovascular: Heart rates are regular but there is no murmurs or gallops. Respiratory: Lungs are clear to auscultation bilaterally. Abdomen: Abdomen soft and nontender to palpation. Discharge Results Procedures and tests throughout hospitalization: Pending Orders 12/25/16 04:53 Comp Blood Count Auto Diff IN AM Labs on day of discharge: Labs from last 24 hours 12/25/16 12/25/16 12/24/16 04:53 04:53 21:46 WBC 7.7 D RBC 4.68 Hgb 14.5 Hct 43.1 MCV 92.1 MCH 31 MCHC 33.6 RDW 14.7 Plt Count 170 D MPV 10.8 Neut % (Auto) 56.0 Lymph % (Auto) 23.9 King % (Auto) 8.1 Eos % (Auto) 10.0 Baso % (Auto) 1.4 H Neut # (Auto) 4.3 Lymph # (Auto) 1.8 King # (Auto) 0.6 Eos # (Auto) 0.8 Baso # (Auto) 0.1 Total Counted Pending Immature Gran % 0.6 Nucleated RBC % 0.0 Immature Gran # 0.05 Nucleated RBCs # 0.00 Immature Plt Fraction 0.0 Sodium 141 Potassium 4.3 Chloride 110 H Carbon Dioxide 23 Anion Gap 12.3 BUN 12 Creatinine 1.00 GFR Calculation 71 BUN/Creatinine Ratio 12.00 Glucose 59 L POC Glucose 76 Calculated Osmolality 278.3 Calcium 8.5 Phosphorus 3.2 Magnesium 2.2 12/24/16 12/24/16 12/24/16 16:05 11:54 07:14 WBC RBC Hgb Hct MCV MCH MCHC RDW Plt Count MPV Neut % (Auto) Lymph % (Auto) King % (Auto) Eos % (Auto) Baso % (Auto) Neut # (Auto) Lymph # (Auto) King # (Auto) Eos # (Auto) Baso # (Auto) Total Counted Immature Gran % Nucleated RBC % Immature Gran # Nucleated RBCs # Immature Plt Fraction Sodium Potassium Chloride Carbon Dioxide Anion Gap BUN Creatinine GFR Calculation BUN/Creatinine Ratio Glucose POC Glucose 109 H 122 H 74 Calculated Osmolality Calcium Phosphorus Magnesium DS: Provider Date of admission: 12/19/16 18:03 Primary care physician: Jaxon Marie MD Attending physician on admission: Jaxon Marie MD Consults: 12/19/16 17:01 Consult to Case Mgmt/Social Srvs [CONS] Routine Reason for Case Mgmt/Social Srvs: Discharge Planning 12/19/16 17:03 Consult to Physician [CONS] Routine Comment: Consulting Provider: [facility] Consult to Wound Care - [place] [CONS] Routine Reason for Wound Care: Wound Care Management 12/19/16 18:46 Consult to Dietitian [CONS] Routine Reason for Dietitian: Dietary Consult 12/21/16 07:13 Consult to Physical Therapy [CONS] Routine Reason for Physical Therapy: Evaluate and Treat Discharging clinician: Jaxon Marie MD Expected date of discharge: 12/25/16
[2016-12-25 07:45] VITALS: BP 114/49
[2016-12-25] MEDS: SODIUM CHLORIDE 0.45% 1,000 ML IV SCH (08:31)
[2016-12-25] MEDS: MIDODRINE 5 MG TABLET PO SCH (09:14)
[2016-12-25] MEDS: ATORVASTATIN 40 MG TABLET PO SCH (09:14)
[2016-12-25] MEDS: FLECAINIDE 100 MG TABLET PO SCH (09:14)
[2016-12-25] MEDS: ASPIRIN EC 81 MG TABLET PO SCH (09:14)
[2016-12-25] MEDS: PANTOPRAZOLE 40 MG TABLET PO SCH (09:15)
[2016-12-25] MEDS: MULTIVITAMIN (CENTRUM) TABLET PO SCH (09:15)
[2016-12-25] MEDS: APIXABAN 2.5 MG TABLET PO SCH (09:15)
[2016-12-25] MEDS: NITROFURANTOIN MACRO/MONO 100 MG CAPSULE PO SCH (09:15)
[2016-12-25] MEDS: GABAPENTIN 100 MG CAPSULE PO SCH (09:15)
[2016-12-25] MEDS: glipiZIDE 5 MG TABLET PO SCH (09:15)
[2016-12-25] MEDS: DOCUSATE SODIUM 100 MG CAPSULE PO SCH (09:15)
== END 2016-12-25 12:40 | disposition home or self-care (01) | DRG 689 ==
LOC: N.TELES 18:03
PROVIDERS: ADMIT Family Medicine; ATTEND Family Medicine

== ENCOUNTER 2017-11-09 08:27 | Inpatient (IN) ==
[2017-11-09 09:39] LABS: Basophils # 0.1 10*3/uL (0.0-0.2); Basophils % 0.4 % (0.0-0.8); Eosinophils % 0.1 % (0.00-10.9); Hematocrit 49.1 VOL% (42.0-52.0); Hemoglobin 16.4 GM/DL (14.0-18.0); Immature Granulocytes % 0.6 %; Immature Granulocytes Absolute 0.09 #; Lymphocytes # 0.8 10*3/uL (1.4-4.0); Lymphocytes % 4.7 % (21.2-54.2); Mean Corpuscular HGB Conc 33.4 GM/DL (32-36); Mean Corpuscular Hemoglobin 32 PG (27-34); Mean Corpuscular Volume 96.8 FL (87-102); Mean Platelet Volume 10.9 FL (9.6-12.0); Monocytes # 0.9 10*3/uL (0.11-0.8); Monocytes % 5.6 % (1.7-12.7); Neutrophils # 14.3 10*3/uL (1.4-7.4); Neutrophils % 88.6 % (38.7-73.9); Platelet Count 122 T/CUMM (130-400); Red Blood Count 5.07 MC/CUMM (3.8-5.5); Red Cell Distribution Width 13.8 % (9.3-17.3); White Blood Count 16.1 T/CUMM (4-12)
[2017-11-09 09:59] LABS: Blood Urea Nitrogen 28 MG/DL (7-18); Calcium 8.8 MG/DL (8.5-10.1); Glucose 157 MG/DL (74-106); Osmolality,Calculated 281.8 MOS/KG (273-304); Potassium 4.5 MMOL/L (3.5-5.1); Sodium 137 MMOL/L (136-145)
[2017-11-09 10:00] LABS: Troponin I Only 0.094 NG/ML (0.00-0.045)
[2017-11-09 10:15] LABS: Band Neutrophils 5 % (0-10); Hypochromasia 1+; Lymphocytes 4 % (20-55); Platelet Estimate Adequate; Segmented Neutrophils 89 % (50-85); Total Cells Counted 100
[2017-11-09 10:18] LABS: Amorphous Crystals,Urine Occasional /HPF (Few); Apearance,Urine Slightly Hazy (Clear); Bacteria,Urine Occasional /HPF (Few); Bilirubin,Urine Negative (Negative); Blood, Urine Moderate mg/dL (Negative); Glucose,Urine (UA) Negative (Negative); Ketones,Urine Negative (Negative); Mucus,Urine Occasional /LPF (Occasional); Nitrite,Urine Negative (Negative); Protein,Urine 100 MG/DL; RBC,Urine 1 /HPF (0-4); Squamous Epithelial Cell,Urine Occasional /HPF (0-10); Urine Color Amber (Yellow); Urine Specific Gravity 1.013 (1.001-1.035); WBC,Urine 5 /HPF (0-6)
[2017-11-09] MEDS ORDERED: cefTRIAXone 1,000 MG in SODIUM CHLORIDE 0.9% 100 ML IV STA (11:04)
[2017-11-09] MEDS: cefTRIAXone 1,000 MG in SYRINGE 1 EACH IV SCH (11:35)
[2017-11-09] MEDS ORDERED: ONDANSETRON 4 MG/2 ML VIAL IV PRN (11:55)
[2017-11-09] MEDS ORDERED: MAGNESIUM HYDROXIDE SUSP 30 ML UDCUP PO PRN (14:33)
[2017-11-09] MEDS ORDERED: DEXTROMETHORPHAN ER 6 MG/ML 90 ML/BOTTLE PO PRN (14:34)
[2017-11-09] MEDS: AZITHROMYCIN 250 MG TABLET PO SCH (15:09)
[2017-11-09] MEDS: SODIUM CHLORIDE 0.9% 1,000 ML IV SCH (15:10)
[2017-11-09] MEDS: MIDODRINE 2.5 MG TABLET PO SCH ×2 (15:30→20:58)
[2017-11-09] MEDS: glipiZIDE 5 MG TABLET PO SCH (17:28)
[2017-11-09] MEDS: ACETAMINOPHEN 325 MG TABLET PO PRN (20:59)
[2017-11-09] MEDS: FLECAINIDE 100 MG TABLET PO SCH (20:59)
[2017-11-09] MEDS: DOCUSATE SODIUM 100 MG CAPSULE PO SCH (20:59)
[2017-11-09] MEDS: APIXABAN 2.5 MG TABLET PO SCH (20:59)
[2017-11-09] MEDS: DESITIN 4OZ/NYSTATIN 15 GRAM MIXTURE PASTE TOP SCH (20:59)
[2017-11-10 06:20] LABS: Basophils # 0.1 10*3/uL (0.0-0.2); Basophils % 0.5 % (0.0-0.8); Eosinophils # 0.1 10*3/uL (0.0-0.87); Eosinophils % 0.8 % (0.00-10.9); Hematocrit 44.9 VOL% (42.0-52.0); Immature Granulocytes % 0.8 %; Lymphocytes # 1.2 10*3/uL (1.4-4.0); Lymphocytes % 10.1 % (21.2-54.2); Mean Corpuscular HGB Conc 33.4 GM/DL (32-36); Mean Corpuscular Hemoglobin 33 PG (27-34); Mean Corpuscular Volume 99.1 FL (87-102); Mean Platelet Volume 11.4 FL (9.6-12.0); Monocytes % 8.4 % (1.7-12.7); Neutrophils # 9.4 10*3/uL (1.4-7.4); Neutrophils % 79.4 % (38.7-73.9); Red Blood Count 4.53 MC/CUMM (3.8-5.5); Red Cell Distribution Width 13.8 % (9.3-17.3); White Blood Count 11.8 T/CUMM (4-12)
[2017-11-10 06:21] LABS: Platelet Count 95 T/CUMM (130-400)
[2017-11-10 06:44] LABS: Calcium 8.1 MG/DL (8.5-10.1); Osmolality,Calculated 283.3 MOS/KG (273-304); Potassium 3.9 MMOL/L (3.5-5.1)
[2017-11-10 06:50] LABS: Giant Platelets Few; Hypochromasia Slight; Platelet Estimate Decreased
[2017-11-10] MEDS ORDERED: MAGNESIUM HYDROXIDE SUSP 30 ML UDCUP PO PRN (06:55)
[2017-11-10] MEDS: SODIUM CHLORIDE 0.9% 1,000 ML IV SCH ×3 (07:47→16:12)
[2017-11-10] MEDS ORDERED: GLUCAGON 1 MG VIAL IM PRN (08:14)
[2017-11-10] MEDS ORDERED: DEXTROSE 50% 25 GM/50 ML VIAL IV PRN (08:14)
[2017-11-10] MEDS: glipiZIDE 5 MG TABLET PO SCH ×2 (09:38→17:12)
[2017-11-10] MEDS: MULTIVITAMIN (CENTRUM) TABLET PO SCH (09:39)
[2017-11-10] MEDS: AZITHROMYCIN 250 MG TABLET PO SCH (09:39)
[2017-11-10] MEDS: PANTOPRAZOLE 40 MG TABLET PO SCH (09:40)
[2017-11-10] MEDS: APIXABAN 2.5 MG TABLET PO SCH ×2 (09:40→21:57)
[2017-11-10] MEDS: ASPIRIN EC 81 MG TABLET PO SCH (09:40)
[2017-11-10] MEDS: DOCUSATE SODIUM 100 MG CAPSULE PO SCH ×2 (09:40→21:57)
[2017-11-10] MEDS: FLECAINIDE 100 MG TABLET PO SCH ×2 (09:40→21:56)
[2017-11-10] MEDS: ATORVASTATIN 20 MG TABLET PO SCH (09:40)
[2017-11-10] MEDS: GABAPENTIN 300 MG CAPSULE PO SCH (09:40)
[2017-11-10] MEDS: MIDODRINE 2.5 MG TABLET PO SCH ×3 (09:42→21:57)
[2017-11-10] MEDS: DESITIN 4OZ/NYSTATIN 15 GRAM MIXTURE PASTE TOP SCH ×2 (09:43→21:57)
[2017-11-10] MEDS: INSULIN REGULAR 100 UNIT/ML SUBCUT SCH ×3 (12:03→21:57)
[2017-11-10] MEDS: cefTRIAXone 1,000 MG in SYRINGE 1 EACH IV SCH (12:25)
[2017-11-10] MEDS: ACETAMINOPHEN 325 MG TABLET PO PRN (17:12)
[2017-11-11] MEDS: SODIUM CHLORIDE 0.9% 1,000 ML IV SCH ×3 (00:12→18:45)
[2017-11-11] MEDS: INSULIN REGULAR 100 UNIT/ML SUBCUT SCH ×4 (08:03→22:00)
[2017-11-11] MEDS: AZITHROMYCIN 250 MG TABLET PO SCH (08:29)
[2017-11-11] MEDS: ATORVASTATIN 20 MG TABLET PO SCH (08:30)
[2017-11-11] MEDS: FLECAINIDE 100 MG TABLET PO SCH ×2 (08:30→21:58)
[2017-11-11] MEDS: APIXABAN 2.5 MG TABLET PO SCH ×2 (08:30→21:58)
[2017-11-11] MEDS: glipiZIDE 5 MG TABLET PO SCH ×2 (08:30→16:53)
[2017-11-11] MEDS: GABAPENTIN 300 MG CAPSULE PO SCH (08:30)
[2017-11-11] MEDS: ASPIRIN EC 81 MG TABLET PO SCH (08:30)
[2017-11-11] MEDS: MULTIVITAMIN (CENTRUM) TABLET PO SCH (08:31)
[2017-11-11] MEDS: DOCUSATE SODIUM 100 MG CAPSULE PO SCH ×2 (08:31→21:58)
[2017-11-11] MEDS: PANTOPRAZOLE 40 MG TABLET PO SCH (08:31)
[2017-11-11] MEDS: DESITIN 4OZ/NYSTATIN 15 GRAM MIXTURE PASTE TOP SCH ×2 (08:32→22:01)
[2017-11-11] MEDS: MIDODRINE 2.5 MG TABLET PO SCH ×3 (08:32→21:59)
[2017-11-11] MEDS: TAMSULOSIN 0.4 MG CAPSULE PO SCH (11:03)
[2017-11-11 11:04] LABS: Apearance,Urine CLEAR (Clear); Bilirubin,Urine Negative (Negative); Blood, Urine Small mg/dL (Negative); Glucose,Urine (UA) Negative (Negative); Ketones,Urine 5 mg/dL (Negative); Nitrite,Urine Negative (Negative); Protein,Urine Negative; RBC,Urine <1 /HPF (0-4); Squamous Epithelial Cell,Urine Occasional /HPF (0-10); Urine Color Yellow (Yellow); Urine Specific Gravity 1.011 (1.001-1.035); WBC,Urine 1 /HPF (0-6)
[2017-11-11] MEDS: cefTRIAXone 1,000 MG in SYRINGE 1 EACH IV SCH (11:04)
[2017-11-12] MEDS: SODIUM CHLORIDE 0.9% 1,000 ML IV SCH ×3 (02:33→21:58)
[2017-11-12 05:50] LABS: Basophils # 0.1 10*3/uL (0.0-0.2); Basophils % 0.9 % (0.0-0.8); Eosinophils # 0.2 10*3/uL (0.0-0.87); Eosinophils % 3.6 % (0.00-10.9); Hematocrit 42.5 VOL% (42.0-52.0); Hemoglobin 14.2 GM/DL (14.0-18.0); Immature Granulocytes % 1.2 %; Immature Granulocytes Absolute 0.08 #; Lymphocytes # 1.1 10*3/uL (1.4-4.0); Lymphocytes % 16.9 % (21.2-54.2); Mean Corpuscular HGB Conc 33.4 GM/DL (32-36); Mean Corpuscular Hemoglobin 32 PG (27-34); Mean Corpuscular Volume 96.2 FL (87-102); Mean Platelet Volume 11.1 FL (9.6-12.0); Monocytes # 0.6 10*3/uL (0.11-0.8); Monocytes % 9.1 % (1.7-12.7); Neutrophils # 4.6 10*3/uL (1.4-7.4); Neutrophils % 68.3 % (38.7-73.9); Platelet Count 116 T/CUMM (130-400); Red Blood Count 4.42 MC/CUMM (3.8-5.5); White Blood Count 6.7 T/CUMM (4-12)
[2017-11-12 06:05] LABS: Calcium 7.8 MG/DL (8.5-10.1); Potassium 3.8 MMOL/L (3.5-5.1)
[2017-11-12] MEDS: INSULIN REGULAR 100 UNIT/ML SUBCUT SCH ×4 (08:00→21:43)
[2017-11-12] MEDS: AZITHROMYCIN 250 MG TABLET PO SCH (09:04)
[2017-11-12] MEDS: ASPIRIN EC 81 MG TABLET PO SCH (09:04)
[2017-11-12] MEDS: TAMSULOSIN 0.4 MG CAPSULE PO SCH (09:04)
[2017-11-12] MEDS: cefTRIAXone 1,000 MG in SYRINGE 1 EACH IV SCH (09:05)
[2017-11-12] MEDS: ATORVASTATIN 20 MG TABLET PO SCH (09:09)
[2017-11-12] MEDS: glipiZIDE 5 MG TABLET PO SCH ×2 (09:09→16:22)
[2017-11-12] MEDS: APIXABAN 2.5 MG TABLET PO SCH ×2 (09:09→21:37)
[2017-11-12] MEDS: FLECAINIDE 100 MG TABLET PO SCH ×2 (09:09→21:37)
[2017-11-12] MEDS: GABAPENTIN 300 MG CAPSULE PO SCH (09:09)
[2017-11-12] MEDS: MULTIVITAMIN (CENTRUM) TABLET PO SCH (09:09)
[2017-11-12] MEDS: PANTOPRAZOLE 40 MG TABLET PO SCH (09:09)
[2017-11-12] MEDS: DOCUSATE SODIUM 100 MG CAPSULE PO SCH ×2 (09:10→21:37)
[2017-11-12] MEDS: MIDODRINE 2.5 MG TABLET PO SCH ×3 (09:33→21:44)
[2017-11-12] MEDS: DESITIN 4OZ/NYSTATIN 15 GRAM MIXTURE PASTE TOP SCH ×2 (09:34→21:43)
[2017-11-12] MEDS: ACETAMINOPHEN 325 MG TABLET PO PRN (10:00)
[2017-11-13] MEDS: SODIUM CHLORIDE 0.9% 1,000 ML IV SCH (04:48)
[2017-11-13] MEDS: INSULIN REGULAR 100 UNIT/ML SUBCUT SCH (07:35)
[2017-11-13] MEDS ORDERED: ACETAMINOPHEN 325 MG TABLET PO PRN (07:37)
[2017-11-13 07:43] VITALS: BP 160/85
[2017-11-13] MEDS ORDERED: PANTOPRAZOLE 40 MG TABLET PO SCH (08:00)
[2017-11-13] MEDS: cefTRIAXone 1,000 MG in SYRINGE 1 EACH IV SCH (08:48)
[2017-11-13] MEDS: glipiZIDE 5 MG TABLET PO SCH (08:49)
[2017-11-13] MEDS: PANTOPRAZOLE 40 MG TABLET PO SCH (08:49)
[2017-11-13] MEDS: DOCUSATE SODIUM 100 MG CAPSULE PO SCH (08:49)
[2017-11-13] MEDS: MULTIVITAMIN (CENTRUM) TABLET PO SCH (08:49)
[2017-11-13] MEDS: FLECAINIDE 100 MG TABLET PO SCH (08:49)
[2017-11-13] MEDS: AZITHROMYCIN 250 MG TABLET PO SCH (08:49)
[2017-11-13] MEDS: ASPIRIN EC 81 MG TABLET PO SCH (08:49)
[2017-11-13] MEDS: ATORVASTATIN 20 MG TABLET PO SCH (08:49)
[2017-11-13] MEDS: TAMSULOSIN 0.4 MG CAPSULE PO SCH (08:49)
[2017-11-13] MEDS: APIXABAN 2.5 MG TABLET PO SCH (08:50)
[2017-11-13] MEDS: GABAPENTIN 300 MG CAPSULE PO SCH (08:50)
[2017-11-13] MEDS: MIDODRINE 2.5 MG TABLET PO SCH (08:50)
== END 2017-11-13 10:15 | disposition home health service (06) | DRG 194 ==
LOC: EDUNIT# → N.ED 08:27 → N.EDINP 11:55 → N.2E 12:34
PROVIDERS: ADMIT Family Medicine; ATTEND Family Medicine

== ENCOUNTER 2018-01-28 19:07 | Observation (INO) ==
[2018-01-28] MEDS ORDERED: SODIUM CHLORIDE 0.9% 500 ML IV STA (19:46)
[2018-01-28 20:16] LABS: Basophils # 0.1 10*3/uL (0.0-0.2); Basophils % 0.6 % (0.0-0.8); Eosinophils # 0.2 10*3/uL (0.0-0.87); Eosinophils % 1.2 % (0.00-10.9); Hematocrit 49.1 VOL% (42.0-52.0); Hemoglobin 16.1 GM/DL (14.0-18.0); Immature Granulocytes % 0.6 %; Immature Granulocytes Absolute 0.08 #; Lymphocytes # 2.5 10*3/uL (1.4-4.0); Lymphocytes % 18.8 % (21.2-54.2); Mean Corpuscular HGB Conc 32.8 GM/DL (32-36); Mean Corpuscular Hemoglobin 32 PG (27-34); Mean Corpuscular Volume 98.8 FL (87-102); Mean Platelet Volume 10.5 FL (9.6-12.0); Monocytes % 7.5 % (1.7-12.7); Neutrophils # 9.6 10*3/uL (1.4-7.4); Neutrophils % 71.3 % (38.7-73.9); Platelet Count 154 T/CUMM (130-400); Red Blood Count 4.97 MC/CUMM (3.8-5.5); Red Cell Distribution Width 13.2 % (9.3-17.3); White Blood Count 13.4 T/CUMM (4-12)
[2018-01-28 20:24] LABS: INR 1.1; PT Patient Result 11.4 SECS
[2018-01-28 20:49] LABS: Apearance,Urine CLEAR (Clear); Bacteria,Urine Occasional /HPF (Few); Bilirubin,Urine Negative (Negative); Blood, Urine Negative (Negative); Glucose,Urine (UA) Negative (Negative); Ketones,Urine Negative (Negative); Nitrite,Urine Negative (Negative); Protein,Urine Negative; RBC,Urine 1 /HPF (0-4); Squamous Epithelial Cell,Urine Occasional /HPF (0-10); Urine Color Yellow (Yellow); Urine Specific Gravity 1.016 (1.001-1.035); WBC,Urine 3 /HPF (0-6)
[2018-01-28 20:58] LABS: Barbiturates Screen,Urine Negative (Negative); Benzodiazepines Screen,Urine Negative (Negative); Cannabinoid Screen,Urine Negative (Negative); Opiate Screen,Urine Negative (Negative); Phencyclidine Screen,Urine Negative (Negative)
[2018-01-28 21:15] LABS: Albumin 3.4 G/DL (3.4-5.0); Bilirubin,Total 1.4 MG/DL (0.2-1.0); Calcium 8.7 MG/DL (8.5-10.1); Osmolality,Calculated 281.4 MOS/KG (273-304); Potassium 4.4 MMOL/L (3.5-5.1); Thyroid Stimulating Hormone 2.02 uIU/ml (0.358-3.74); Total Protein 6.5 G/DL (6.4-8.3)
[2018-01-28] MEDS ORDERED: cefTRIAXone 1,000 MG in SODIUM CHLORIDE 0.9% 100 ML IV STA (21:21)
[2018-01-28] MEDS ORDERED: MORPHINE 4 MG/1 ML VIAL IV PRN (23:37)
[2018-01-28] MEDS ORDERED: GLUCAGON 1 MG VIAL IM PRN (23:37)
[2018-01-28] MEDS ORDERED: DEXTROSE 50% 25 GM/50 ML VIAL IV PRN (23:37)
[2018-01-28] MEDS ORDERED: ACETAMINOPHEN 325 MG TABLET PO PRN (23:37)
[2018-01-28] MEDS ORDERED: ONDANSETRON 4 MG/2 ML VIAL IV PRN (23:37)
[2018-01-29] MEDS: SODIUM CHLORIDE 0.9% 1,000 ML IV SCH ×2 (00:02→13:31)
[2018-01-29] MEDS: INSULIN REGULAR 100 UNIT/ML SUBCUT SCH ×4 (00:04→21:05)
[2018-01-29 05:31] LABS: Basophils # 0.1 10*3/uL (0.0-0.2); Basophils % 1.1 % (0.0-0.8); Eosinophils # 0.3 10*3/uL (0.0-0.87); Hematocrit 44.7 VOL% (42.0-52.0); Hemoglobin 14.7 GM/DL (14.0-18.0); Immature Granulocytes % 0.4 %; Immature Granulocytes Absolute 0.03 #; Lymphocytes # 1.8 10*3/uL (1.4-4.0); Lymphocytes % 21.7 % (21.2-54.2); Mean Corpuscular HGB Conc 32.9 GM/DL (32-36); Mean Corpuscular Hemoglobin 32 PG (27-34); Mean Corpuscular Volume 98.2 FL (87-102); Mean Platelet Volume 10.6 FL (9.6-12.0); Monocytes # 0.8 10*3/uL (0.11-0.8); Monocytes % 9.6 % (1.7-12.7); Neutrophils # 5.2 10*3/uL (1.4-7.4); Neutrophils % 63.2 % (38.7-73.9); Platelet Count 135 T/CUMM (130-400); Red Blood Count 4.55 MC/CUMM (3.8-5.5); Red Cell Distribution Width 13.2 % (9.3-17.3); White Blood Count 8.2 T/CUMM (4-12)
[2018-01-29 06:00] LABS: Calcium 8.1 MG/DL (8.5-10.1)
[2018-01-29 06:01] LABS: Albumin 2.7 G/DL (3.4-5.0); Bilirubin,Total 1.6 MG/DL (0.2-1.0); Osmolality,Calculated 283.1 MOS/KG (273-304); Risk Ratio 2.24; Total Protein 5.4 G/DL (6.4-8.3); VLDL CHOLESTEROL 18.2 MG/DL
[2018-01-29] MEDS: APIXABAN 2.5 MG TABLET PO SCH ×2 (09:48→21:02)
[2018-01-29] MEDS: glipiZIDE 5 MG TABLET PO SCH ×2 (09:48→21:02)
[2018-01-29] MEDS: DOCUSATE SODIUM 100 MG CAPSULE PO SCH ×2 (09:48→21:02)
[2018-01-29] MEDS: PANTOPRAZOLE 40 MG VIAL IV SCH (09:50)
[2018-01-29] MEDS: FLECAINIDE 100 MG TABLET PO SCH ×2 (13:31→21:02)
[2018-01-29] MEDS: MIDODRINE 2.5 MG TABLET PO SCH ×3 (13:31→21:02)
[2018-01-30] MEDS: INSULIN REGULAR 100 UNIT/ML SUBCUT SCH ×3 (00:35→12:15)
[2018-01-30] MEDS: SODIUM CHLORIDE 0.9% 1,000 ML IV SCH ×2 (04:17→16:54)
[2018-01-30 07:15] LABS: Calcium 8.1 MG/DL (8.5-10.1); Osmolality,Calculated 278.4 MOS/KG (273-304)
[2018-01-30] MEDS ORDERED: ASPIRIN EC 81 MG TABLET PO SCH (08:00)
[2018-01-30] MEDS ORDERED: ATORVASTATIN 40 MG TABLET PO SCH (08:00)
[2018-01-30] MEDS ORDERED: GABAPENTIN 300 MG CAPSULE PO SCH (08:00)
[2018-01-30] MEDS ORDERED: MULTIVITAMIN (CENTRUM) TABLET PO SCH (08:00)
[2018-01-30] MEDS: glipiZIDE 5 MG TABLET PO SCH (08:54)
[2018-01-30] MEDS: DOCUSATE SODIUM 100 MG CAPSULE PO SCH (08:54)
[2018-01-30] MEDS: FLECAINIDE 100 MG TABLET PO SCH (08:54)
[2018-01-30] MEDS: PANTOPRAZOLE 40 MG VIAL IV SCH (08:54)
[2018-01-30] MEDS: APIXABAN 2.5 MG TABLET PO SCH (08:54)
[2018-01-30] MEDS: MIDODRINE 2.5 MG TABLET PO SCH ×2 (08:55→16:54)
[2018-01-30] MEDS ORDERED: cefTRIAXone 1,000 MG in SYRINGE 1 EACH IV SCH (16:00)
[2018-01-30 16:26] VITALS: BP 144/82
== END 2018-01-30 17:56 | disposition home health service (06) ==
LOC: EDUNIT# → EDSEX → EDBD → N.EDINP 19:07 → N.ED 19:07 → N.5E 22:58
PROVIDERS: ADMIT Family Medicine; ATTEND Family Medicine

== ENCOUNTER 2018-06-05 09:05 | Inpatient (IN) ==
[2018-06-05] MEDS ORDERED: ALBUTEROL/IPRATROPIUM 3 ML NEB RESP TX STA (09:30)
[2018-06-05] MEDS ORDERED: SODIUM CHLORIDE 0.9% 500 ML IV STA (10:00)
[2018-06-05 10:02] LABS: Basophils # 0.1 10*3/uL (0.0-0.2); Basophils % 0.4 % (0.0-0.8); Hematocrit 47.6 VOL% (42.0-52.0); Hemoglobin 15.5 GM/DL (14.0-18.0); Immature Granulocytes % 0.7 %; Immature Granulocytes Absolute 0.14 #; Lymphocytes # 1.6 10*3/uL (1.4-4.0); Lymphocytes % 7.8 % (21.2-54.2); Mean Corpuscular HGB Conc 32.6 GM/DL (32-36); Mean Corpuscular Hemoglobin 31 PG (27-34); Mean Platelet Volume 10.6 FL (9.6-12.0); Monocytes # 1.7 10*3/uL (0.11-0.8); Monocytes % 8.3 % (1.7-12.7); Neutrophils # 17.2 10*3/uL (1.4-7.4); Neutrophils % 82.8 % (38.7-73.9); Platelet Count 158 T/CUMM (130-400); Red Blood Count 4.96 MC/CUMM (3.8-5.5); Red Cell Distribution Width 13.7 % (9.3-17.3); White Blood Count 20.8 T/CUMM (4-12)
[2018-06-05 10:08] LABS: Apearance,Urine CLEAR (Clear); Bacteria,Urine Occasional /HPF (Few); Bilirubin,Urine Negative (Negative); Blood, Urine Negative (Negative); Glucose,Urine (UA) Negative (Negative); Ketones,Urine Negative (Negative); Mucus,Urine Occasional /LPF (Occasional); Nitrite,Urine Negative (Negative); Protein,Urine Negative; RBC,Urine <1 /HPF (0-4); Squamous Epithelial Cell,Urine Occasional /HPF (0-10); Urine Color Yellow (Yellow); Urine Specific Gravity 1.014 (1.001-1.035); WBC,Urine 2 /HPF (0-6)
[2018-06-05 10:23] LABS: Band Neutrophils 3 % (0-10); Hypochromasia 1+; Lymphocytes 3 % (20-55); Platelet Estimate Normal; Segmented Neutrophils 82 % (50-85); Total Cells Counted 100
[2018-06-05 10:24] LABS: Alanine Aminotransferase 14 U/L (16-61); Albumin 3.1 G/DL (3.4-5.0); Alkaline Phosphatase 104 U/L (45-117); Aspartate Amino Transferase 15 U/L (0-37); Blood Urea Nitrogen 19 MG/DL (7-18); Calcium 8.8 MG/DL (8.5-10.1); Glucose 130 MG/DL (74-106); Osmolality,Calculated 276.8 MOS/KG (273-304); Potassium 4.4 MMOL/L (3.5-5.1); Sodium 137 MMOL/L (136-145); Total Protein 6.5 G/DL (6.4-8.3)
[2018-06-05] MEDS ORDERED: ONDANSETRON 4 MG/2 ML VIAL IV PRN (11:17)
[2018-06-05] MEDS ORDERED: LEVOFLOXACIN INJ 500 MG in PREMIX 1 EACH IV STA (11:17)
[2018-06-05] MEDS ORDERED: ACETAMINOPHEN 325 MG TABLET PO PRN (11:17)
[2018-06-05] MEDS ORDERED: cefTRIAXone 1,000 MG in SODIUM CHLORIDE 0.9% 100 ML IV STA (12:31)
[2018-06-05] MEDS ORDERED: diphenhydrAMINE 50 MG/1 ML VIAL IV STA (12:31)
[2018-06-05] MEDS: SODIUM CHLORIDE 0.9% 1,000 ML IV SCH (13:06)
[2018-06-05] MEDS ORDERED: GLUCAGON 1 MG VIAL IM PRN (17:36)
[2018-06-05] MEDS ORDERED: DEXTROSE 50% 25 GM/50 ML VIAL IV PRN (17:36)
[2018-06-05] MEDS: CLINDAMYCIN INJ 600 MG in PREMIX 1 EACH IV SCH (19:11)
[2018-06-05] MEDS: glipiZIDE 5 MG TABLET PO SCH (21:54)
[2018-06-05] MEDS: MEROPENEM 1,000 MG in SODIUM CHLORIDE 0.9% 100 ML IV SCH (21:54)
[2018-06-05] MEDS: DOCUSATE SODIUM 100 MG CAPSULE PO SCH (21:54)
[2018-06-05] MEDS: APIXABAN 2.5 MG TABLET PO SCH (21:55)
[2018-06-05] MEDS: FLECAINIDE 100 MG TABLET PO SCH (21:55)
[2018-06-05] MEDS: MIDODRINE 2.5 MG TABLET PO SCH (21:57)
[2018-06-05] MEDS: INSULIN LISPRO 100 UNIT/ML SUBCUT SCH (22:06)
[2018-06-06] MEDS: CLINDAMYCIN INJ 600 MG in PREMIX 1 EACH IV SCH ×4 (01:47→17:47)
[2018-06-06] MEDS: SODIUM CHLORIDE 0.9% 1,000 ML IV SCH ×4 (01:53→21:18)
[2018-06-06 04:30] LABS: Basophils # 0.1 10*3/uL (0.0-0.2); Basophils % 0.6 % (0.0-0.8); Eosinophils # 0.1 10*3/uL (0.0-0.87); Eosinophils % 0.7 % (0.00-10.9); Hematocrit 42.7 VOL% (42.0-52.0); Hemoglobin 13.3 GM/DL (14.0-18.0); Immature Granulocytes % 0.9 %; Immature Granulocytes Absolute 0.11 #; Lymphocytes # 1.2 10*3/uL (1.4-4.0); Lymphocytes % 9.8 % (21.2-54.2); Mean Corpuscular HGB Conc 31.1 GM/DL (32-36); Mean Corpuscular Hemoglobin 31 PG (27-34); Mean Corpuscular Volume 98.6 FL (87-102); Mean Platelet Volume 10.6 FL (9.6-12.0); Monocytes # 0.9 10*3/uL (0.11-0.8); Monocytes % 7.2 % (1.7-12.7); Neutrophils # 9.9 10*3/uL (1.4-7.4); Neutrophils % 80.8 % (38.7-73.9); Platelet Count 140 T/CUMM (130-400); Red Blood Count 4.33 MC/CUMM (3.8-5.5); Red Cell Distribution Width 13.6 % (9.3-17.3); White Blood Count 12.3 T/CUMM (4-12)
[2018-06-06 07:44] LABS: Sedimentation Rate-Westergren 25 MM/HR (0-20)
[2018-06-06] MEDS: MEROPENEM 1,000 MG in SODIUM CHLORIDE 0.9% 100 ML IV SCH ×2 (08:24→21:15)
[2018-06-06] MEDS: DOCUSATE SODIUM 100 MG CAPSULE PO SCH ×2 (08:28→21:15)
[2018-06-06] MEDS: APIXABAN 2.5 MG TABLET PO SCH ×2 (08:29→21:15)
[2018-06-06] MEDS: ATORVASTATIN 20 MG TABLET PO SCH (08:29)
[2018-06-06] MEDS: ASPIRIN EC 81 MG TABLET PO SCH (08:29)
[2018-06-06] MEDS: glipiZIDE 5 MG TABLET PO SCH ×2 (08:29→21:15)
[2018-06-06] MEDS: MULTIVITAMIN (CENTRUM) TABLET PO SCH (08:29)
[2018-06-06] MEDS: GABAPENTIN 300 MG CAPSULE PO SCH (08:29)
[2018-06-06] MEDS: FLECAINIDE 100 MG TABLET PO SCH ×2 (08:29→21:15)
[2018-06-06] MEDS: INSULIN LISPRO 100 UNIT/ML SUBCUT SCH ×4 (08:30→20:31)
[2018-06-06] MEDS: PANTOPRAZOLE 40 MG TABLET PO SCH (08:39)
[2018-06-06] MEDS: MIDODRINE 2.5 MG TABLET PO SCH ×3 (08:40→21:15)
[2018-06-07] MEDS: CLINDAMYCIN INJ 600 MG in PREMIX 1 EACH IV SCH ×3 (01:16→18:17)
[2018-06-07] MEDS: SODIUM CHLORIDE 0.9% 1,000 ML IV SCH ×3 (03:31→21:04)
[2018-06-07] MEDS: INSULIN LISPRO 100 UNIT/ML SUBCUT SCH ×4 (07:30→21:03)
[2018-06-07] MEDS: APIXABAN 2.5 MG TABLET PO SCH ×2 (09:31→21:03)
[2018-06-07] MEDS: MULTIVITAMIN (CENTRUM) TABLET PO SCH (09:31)
[2018-06-07] MEDS: FLECAINIDE 100 MG TABLET PO SCH ×2 (09:31→21:03)
[2018-06-07] MEDS: MIDODRINE 2.5 MG TABLET PO SCH ×2 (09:31→15:45)
[2018-06-07] MEDS: glipiZIDE 5 MG TABLET PO SCH ×2 (09:31→21:03)
[2018-06-07] MEDS: DOCUSATE SODIUM 100 MG CAPSULE PO SCH ×2 (09:32→21:03)
[2018-06-07] MEDS: GABAPENTIN 300 MG CAPSULE PO SCH (09:32)
[2018-06-07] MEDS: ASPIRIN EC 81 MG TABLET PO SCH (09:32)
[2018-06-07] MEDS: ATORVASTATIN 20 MG TABLET PO SCH (09:32)
[2018-06-07] MEDS: PANTOPRAZOLE 40 MG TABLET PO SCH (09:32)
[2018-06-07] MEDS: MEROPENEM 1,000 MG in SODIUM CHLORIDE 0.9% 100 ML IV SCH ×2 (09:43→21:05)
[2018-06-08] MEDS: SODIUM CHLORIDE 0.9% 1,000 ML IV SCH ×3 (00:47→08:56)
[2018-06-08] MEDS: CLINDAMYCIN INJ 600 MG in PREMIX 1 EACH IV SCH (01:27)
[2018-06-08] MEDS: INSULIN LISPRO 100 UNIT/ML SUBCUT SCH ×4 (08:43→21:22)
[2018-06-08] MEDS: FLECAINIDE 100 MG TABLET PO SCH ×2 (08:44→21:21)
[2018-06-08] MEDS: ATORVASTATIN 20 MG TABLET PO SCH (08:45)
[2018-06-08] MEDS: PANTOPRAZOLE 40 MG TABLET PO SCH (08:45)
[2018-06-08] MEDS: GABAPENTIN 300 MG CAPSULE PO SCH (08:45)
[2018-06-08] MEDS: ASPIRIN EC 81 MG TABLET PO SCH (08:45)
[2018-06-08] MEDS: glipiZIDE 5 MG TABLET PO SCH ×2 (08:45→21:22)
[2018-06-08] MEDS: APIXABAN 2.5 MG TABLET PO SCH ×2 (08:45→21:21)
[2018-06-08] MEDS: DOCUSATE SODIUM 100 MG CAPSULE PO SCH ×2 (08:45→21:21)
[2018-06-08] MEDS: MULTIVITAMIN (CENTRUM) TABLET PO SCH (08:45)
[2018-06-08] MEDS: AMOXICILLIN 875 MG TABLET PO SCH ×2 (10:16→21:22)
[2018-06-08] MEDS ORDERED: hydroCHLOROthiazide 12.5 MG CAPSULE PO ONE (12:28)
[2018-06-09 05:30] LABS: Basophils # 0.1 10*3/uL (0.0-0.2); Basophils % 1.2 % (0.0-0.8); Eosinophils # 0.4 10*3/uL (0.0-0.87); Eosinophils % 5.5 % (0.00-10.9); Hematocrit 45.8 VOL% (42.0-52.0); Hemoglobin 14.9 GM/DL (14.0-18.0); Immature Granulocytes % 0.7 %; Immature Granulocytes Absolute 0.05 #; Lymphocytes # 1.7 10*3/uL (1.4-4.0); Lymphocytes % 25.2 % (21.2-54.2); Mean Corpuscular HGB Conc 32.5 GM/DL (32-36); Mean Corpuscular Hemoglobin 31 PG (27-34); Mean Corpuscular Volume 95.4 FL (87-102); Mean Platelet Volume 10.6 FL (9.6-12.0); Monocytes # 0.6 10*3/uL (0.11-0.8); Monocytes % 8.9 % (1.7-12.7); Neutrophils % 58.5 % (38.7-73.9); Platelet Count 179 T/CUMM (130-400); Red Cell Distribution Width 13.3 % (9.3-17.3); White Blood Count 6.9 T/CUMM (4-12)
[2018-06-09 08:13] VITALS: BP 135/93
[2018-06-09] MEDS: INSULIN LISPRO 100 UNIT/ML SUBCUT SCH ×2 (08:57→12:08)
[2018-06-09] MEDS: ATORVASTATIN 20 MG TABLET PO SCH (08:58)
[2018-06-09] MEDS: DOCUSATE SODIUM 100 MG CAPSULE PO SCH (08:58)
[2018-06-09] MEDS: GABAPENTIN 300 MG CAPSULE PO SCH (08:58)
[2018-06-09] MEDS: APIXABAN 2.5 MG TABLET PO SCH (08:58)
[2018-06-09] MEDS: PANTOPRAZOLE 40 MG TABLET PO SCH (08:58)
[2018-06-09] MEDS: AMOXICILLIN 875 MG TABLET PO SCH (08:58)
[2018-06-09] MEDS: FLECAINIDE 100 MG TABLET PO SCH (08:58)
[2018-06-09] MEDS: MULTIVITAMIN (CENTRUM) TABLET PO SCH (08:59)
[2018-06-09] MEDS: ASPIRIN EC 81 MG TABLET PO SCH (08:59)
[2018-06-09] MEDS: glipiZIDE 5 MG TABLET PO SCH (08:59)
== END 2018-06-09 12:52 | disposition home or self-care (01) | DRG 871 ==
LOC: EDBD → EDUNIT# → N.EDINP 09:05 → N.ED 09:05 → N.EDINP 14:02 → N.2E 14:32
PROVIDERS: ADMIT Family Medicine; ATTEND Family Medicine